=== PATIENT | male | born 1995 | race Caucasian/White ===

== ENCOUNTER 2019-08-18 18:15 | Emergency (ER) | payer OTHER ==
[~2019-08-18] VITALS: Ht 167.6 cm; Wt 86.2 kg
[2019-08-18 18:23] VITALS: BP 160/88
[2019-08-18] MEDS ORDERED: HYDROcodone/APAP 10/325 MG 1 TAB TAB PO STA (20:47)
[2019-08-18 23:11] VITALS: BP 117/63
== END 2019-08-18 23:11 | disposition home or self-care (01) ==
LOC: MED 18:15
DX: L02.31 Cutaneous abscess of buttock (principal)
CPT/HCPCS: 99283

== ENCOUNTER 2019-10-31 10:24 | Emergency (ER) | payer OTHER ==
[~2019-10-31] VITALS: Ht 167.6 cm; Wt 90.7 kg
[2019-10-31 10:26] VITALS: BP 145/65
--- NOTE | 2019-10-31 10:32 | NUR ---
pt ambulated to ER bed 02
--- NOTE | 2019-10-31 10:46 | NUR ---
URINE COLLECTED, LAB AT BEDSIDE
--- NOTE | 2019-10-31 10:48 | NUR ---
C/O INTERMITENT EPIGASTRIC PAIN 6/10, LIGHT HEADACHE & DIZZINESS X 4 DAYS. DENIES N/V/D. ABDOMEN SOFT AND ROUND, NONTENDER TO TOUCH. PUPILS PERRL. EQUAL ARM PER DIEM NURSE. GCS 15. PT STATES HE DRANK SOCIALLY 2 DAYS AGO. VS STABLE. PT ALERT AND AWAKE, AMBULATORY WITH STEADY GAIT. MED HX: DENIES
[2019-10-31] MEDS ORDERED: NACL 0.9% 1,000 ML IV ONE (10:57)
[2019-10-31] MEDS ORDERED: NACL 0.9% 1,000 ML IV SCH (10:57)
[2019-10-31] MEDS ORDERED: ONDANSETRON 4 MG/2 ML VIAL IVP ONE (11:00)
[2019-10-31] MEDS ORDERED: PROMETHAZINE 25 MG/ML VIAL IVP ONE (11:00)
[2019-10-31] MEDS ORDERED: FAMOTIDINE 20 MG TAB PO ONE (11:00)
[2019-10-31] MEDS ORDERED: MORPHINE SULFATE 4 MG/ML SYR IVP ONE (11:00)
[2019-10-31] MEDS ORDERED: GLYCOPYRROLATE 0.2 MG/ML VIAL IV ONE (11:00)
[2019-10-31 11:16] LABS: EOSINOPHILS # (AUTO) 0.2 K/uL (0-0.4); HEMATOCRIT 43.4 % (36-52); MEAN CORPUSCULAR HEMOGLOBIN 30 pg (27-31); MONOCYTES # (AUTO) 0.4 K/uL (0.8-1.0); WHITE BLOOD COUNT (AUTO) 5.8 K/uL (4.8-10.8)
[2019-10-31 11:22] LABS: BARBITURATE, URINE NEG. ng/ml (NEG <=200); BENZODIAZEPINE, URINE NEG. ng/mL (NEG <=200); CANNABINOID, URINE NEG. ng/mL (NEG <=50); COCAINE, URINE NEG. ng/mL (NEG <=300); OPIATE, URINE NEG. ng/mL (NEG <=2000); PHENCYCLIDINE SCREEN,URINE NEG. ng/mL (NEG <=25)
--- NOTE | 2019-10-31 11:23 | NUR ---
IV INSERTED AND MEDICATIONS ADMINISTERED ORDERED. PT TOLERATED WELL
[2019-10-31 11:24] LABS: BASOPHILS % (AUTO) 0.5 % (0.0-2.0); EOSINOPHILS % (AUTO) 3.2 % (0.0-4.0); HEMOGLOBIN 14.5 g/dL (12.0-18.0); LYMPHOCYTES # (AUTO) 1.9 K/uL (2.0-11.5); LYMPHOCYTES % (AUTO) 33.4 % (20.5-51.1); MEAN CORPUSCULAR HGB CONC 34 g/dL (33-37); MEAN CORPUSCULAR VOLUME 88.4 fL (80-94); MONOCYTES % (AUTO) 7.3 % (1.7-9.3); NEUTROPHILS # (AUTO) 3.2 K/uL (1.8-7.7); NEUTROPHILS % (AUTO) 55.6 % (42.2-75.2); PLATELET COUNT (AUTO) 237 K/uL (140-450); RED BLOOD CELL COUNT(AUTO) 4.92 MIL/uL (4.20-6.10); RED CELL DISTRIBUTION WIDTH 12.7 % (11.6-13.7)
[2019-10-31 11:25] LABS: ANION GAP 15.6 (8-16); CARBON DIOXIDE 24.5 mmol/L (21-32); POTASSIUM 4.1 mmol/L (3.5-5.1)
[2019-10-31 11:26] LABS: ALBUMIN 4.1 g/dL (3.4-5.0); CREATININE 0.9 mg/dL (0.7-1.3); TOTAL BILIRUBIN 0.8 mg/dL (0.0-1.0)
--- NOTE | 2019-10-31 11:28 | NUR ---
PT GOING TO CT VIA WHEELCHAIR
[2019-10-31 11:30] LABS: APPEARANCE,URINE CLEAR (CLEAR); BILIRUBIN,URINE NEGATIVE (NEGATIVE); BLOOD, URINE NEGATIVE (NEGATIVE); COLOR,URINE YELLOW (YELLOW); LEUKOCYTE ESTERASE ,URINE NEGATIVE (NEGATIVE); NITRITE, URINE NEGATIVE (NEGATIVE); UGLUCOSE NEGATIVE (NEGATIVE)
--- NOTE | 2019-10-31 11:38 | NUR ---
PT RETURNED FROM CT
--- NOTE | 2019-10-31 11:43 | NUR ---
NADR, PAIN 3/10 PER PATIENT.
--- NOTE | 2019-10-31 11:44 | NUR ---
DR DEGROOT RE-EVALUATING PT
--- NOTE | 2019-10-31 11:55 | NUR ---
PER DR DEGROOT, BOLUS TO FINISH THEN PT CAN BE DISCHARGED
[2019-10-31 12:09] VITALS: BP 122/77
--- NOTE | 2019-10-31 12:09 | NUR ---
Patient discharged with v/s stable. Written and verbal after care instructions given and explained REGARDING GASTRITIS. Patient alert, oriented and verbalized understanding of instructions. Ambulatory with steady gait. All questions addressed prior to discharge. ID band removed. Patient advised to follow up with PMD. Rx of PRILOSEC AND PEPCID given. Patient educated on indication of medication including possible reaction and side effects. Opportunity to ask questions provided and answered. PT INSTRUCTED TO USE OTC TYLENOL FOR H/A PT GIVEN REFERRAL FOR GASTRENTEROLOGIST
== END 2019-10-31 12:09 | disposition home or self-care (01) ==
LOC: MED 10:24
DX: F12.188 Cannabis abuse with other cannabis-induced disorder (principal); R11.10 Vomiting, unspecified; K65.4 Sclerosing mesenteritis
CPT/HCPCS: 36415; 74176; 80053; 80305; 81003; 82150; 83690; 85025; 96361; 96374; 96375; 99284; G0482; J2270; J2405; J2550; J3490

== ENCOUNTER 2019-11-18 14:07 | Emergency (ER) | payer OTHER ==
[~2019-11-18] VITALS: Ht 165.1 cm; Wt 91.6 kg
[2019-11-18 14:12] VITALS: BP 139/78
--- NOTE | 2019-11-18 14:17 | NUR ---
24 Y/O M C/C FLU SYMPTOMS X4 DAYS. PER PT HAS GONE TO URGENT CARE AND PROMETHAZINE HAS BEEN PRESCRIBED WITH LITTLE RELIEF. PER PT NKA. NO HX. NO RX. DIARRHEA X1 DAY; NO VOMITTING. PT NOT TAKEN FLU SHOT/ FAMILY SICK AT HOME. PT SITTING IN CHAIR B.
--- NOTE | 2019-11-18 14:53 | NUR ---
PT TO XRAY VIA WHEELCHAIR
[2019-11-18 15:51] VITALS: BP 139/78
--- NOTE | 2019-11-18 15:51 | NUR ---
Patient discharged with v/s stable. Written and verbal after care instructions given and explained. Patient alert, oriented and verbalized understanding of instructions. Ambulatory with steady gait. All questions addressed prior to discharge. ID band removed. Patient advised to follow up with PMD. Rx of IBUPROFEN, FLONASE, TESSALON PERLES given. Patient educated on indication of medication including possible reaction and side effects. Opportunity to ask questions provided and answered.
== END 2019-11-18 15:51 | disposition home or self-care (01) ==
LOC: MED 14:07
DX: B34.9 Viral infection, unspecified (principal); J20.9 Acute bronchitis, unspecified
CPT/HCPCS: 71045; 99283